=== PATIENT | male | born 1940 | race Caucasian/White ===

== ENCOUNTER 2019-01-07 20:23 | Inpatient (IN) | payer OTHER ==
[~2019-01-07] VITALS: Ht 182.9 cm; Wt 95.3 kg
[2019-01-07 20:28] VITALS: BP 157/71
[2019-01-07 22:10] LABS: ABSOLUTE NEUTROPHILS 5.9 thou/uL (1.4-8.2); BASOPHILS 0.8 % (0.0-2.0); EOSINOPHILS 1.4 % (0.0-3.0); HEMATOCRIT 44.7 % (42.0-52.0); LYMPHOCYTES 17.4 % (24.0-44.0); MCH 30.1 pg (26.0-34.0); MCHC 33.6 g/dL (28.0-37.0); MCV 89.6 fL (80.0-100.0); MONOCYTES 7.2 % (1.0-8.0); PLATELET COUNT 217 thou/uL (150-400); POLYS 73.2 % (36.0-66.0); RBC 4.99 mil/uL (4.50-6.00); RDW 14.4 % (10.5-14.5)
[2019-01-07 22:26] LABS: ALBUMIN 3.8 g/dL (3.4-5.0); BUN 17 mg/dL (7-18); CALCIUM 9.1 mg/dL (8.5-10.1); CO2 24 mmol/L (21-32); GLUCOSE 88 mg/dL (74-106); SGOT 13 U/L (15-37); SGPT 19 U/L (30-65); TOTAL BILIRUBIN 0.6 mg/dL (<0.1-1.0); TOTAL PROTEIN 7.3 g/dL (6.4-8.2); TROPONIN-I <0.06 ng/mL (<0.06)
[2019-01-07 23:02] LABS: ANION GAP 12 mmol/L (7-16); CHLORIDE 102 mmol/L (98-107); POTASSIUM 3.8 mmol/L (3.5-5.1); SODIUM 138 mmol/L (136-145)
[2019-01-07 23:12] LABS: URINE BILIRUBIN NEGATIVE (Negative); URINE BLOOD 1+ (Negative); URINE CLARITY CLEAR; URINE COLOR YELLOW; URINE GLUCOSE-RANDOM* NEGATIVE (Negative); URINE KETONES 1+ (Negative); URINE LEUKOCYTES-REFLEX NEGATIVE (Negative); URINE NITRITE-REFLEX NEGATIVE (Negative); URINE PROTEIN (DIPSTICK) NEGATIVE (Negative); URINE SPECIFIC GRAVITY <= 1.005 (1.005-1.035); URINE UROBILINOGEN 0.2 E.U./dl (0.2-1.0)
[2019-01-07 23:25] LABS: BACTERIA-REFLEX None Seen /HPF (None Seen); CASTS None Seen /LPF (None Seen); CRYSTALS None Seen /LPF (None Seen); MUCUS None Seen strn/LPF (None Seen); SQUAMOUS None Seen /LPF (0-3); URINE RBC 3-10 Few /HPF (0-2); URINE WBC-REFLEX None Seen /HPF (0-5)
[2019-01-07 23:31] LABS: AMP/METHAMP Negative (Negative); BARBITURATES Negative (Negative); BENZODIAZEPINES Negative (Negative); COCAINE Negative (Negative); METHADONE Negative (Negative); OPIATES Negative (Negative); PCP Negative (Negative)
[2019-01-08 00:42] VITALS: BP 132/86
[2019-01-08 00:50] VITALS: BP 158/84
--- NOTE | 2019-01-08 02:07 | NUR ---
PT ARRIVED ON UNIT AT 0030, ACCOMPANIED BY AND SON. HAD BEEN LIVING WITH , BUT SHE CAN NO LONGER CARE FOR HIM HIS ALZHEIMERS IS GETTING WORST. SHE CLAIMS SHE IN SOMETIMES AFRAID OF HIM. HE IS IN DENIAL TO THE EXTENT OF MEMORY PROBLEMS. ABLE TO PROVIDE CURSORY HISTORY AT THIS TIME. RECEIVED SEROQUEL IN ED AND IS A LITTLE DROWSY. VSS AND WAS COOPERATIVE WITH LIMITED INTERVIEW. HE WAS TAKEN TO A MEMORY FACILITY EARLIER TODAY, BUT REFUSED TO STAY, THUS HE WAS BROUGHT TO ED. MEDICAL HISTORY OF RENAL CARCINOMA WITH NEPHRECTOMY. ALERT BUT QUESTIONING TO WHY HE IS HERE.
[2019-01-08 02:21] VITALS: BP 158/84
--- NOTE | 2019-01-08 04:52 | NUR ---
PT SETTLED IN AFTER ADMISSION AND SLEPT WELL THROUGH THE NIGHT.
[2019-01-08 08:24] VITALS: BP 138/70
--- NOTE | 2019-01-08 09:10 | EKG ---
[place] [address] [address] [facility] [place] [address] ELECTROCARDIOGRAM REPORT Name: SAIMA BENNETT Room #: 527B- ADM IN M.R.#: [id number] ������������������ Admission: 01/07/19 ������������������ Attend Phys: Sebastian Deal DO Discharge: ������������������ Date of : 36 Report #: [id number] ����������������������������������������������������������������� [id number] THIS REPORT FOR: //name// [facility] ED Test Date: 2019-01-07 Test Time: 22:46:15 Pat Name: SAIMA BENNETT Department: Room: [facility] Gender: M [employer] Manager: PHUONG : 1940 Requested By: Ya Willis Order Number: [id number] MD: Joel Cano Measurements Intervals [place] Rate: 53 P: -10 PA: 200 QRS: -22 QRSD: 97 T: 11 QT: 438 QTc: 412 Interpretive Statements Sinus bradycardia Otherwise normal tracing No previous ECG available for comparison Electronically Signed On 01-08-2019 9:10:20 CDT by Joel Cano [email or web address] ��������������������������������������������� <ELECTRONICALLY SIGNED> ���������������������������������������� By: Joel Cano MD, [facility] ��������������������������������������������� 01/08/19 [id number] Joel Cano MD, FACC /EPI
--- NOTE | 2019-01-08 15:32 | NUR ---
PATIENT IS UP AND OUT ON THE UNIT MOST OF THE DAY. SHE IS FORGETFUL, AND HAS PERIODS OF CONFUSION. PATIENT STATES " MY TOOK ME TO A [facility] WHERE I MET WITH THIS OLD POLITICAINS. I WAS TALKING TO THIS KAREL I FOUND OUT THE TYPE OF FACILITY I WAS IN, I WAS NOT GOING TO STAY THERE. I JUST DON'T WANT TO TALK ABOUT IT" APPETITE IS POOR, " WHEN I REMEMBER WHAT MY DID, I LOST MY APPETITE". PATIENT ENCOURAGED TO COME TO STAFF WITH ANY CONCERN. PATIENT'S ADMISSION MEDICATION VERIFIED WITH DR. TOBAR THIS MORNING. HE TOOK ALL HIS MEDICATION WHOLE WITHOUT DIFFICULTY. HE DENIES SUICIDAL AND HOMOCIDAL IDEATION. HE AMBULATES WITH SLOW STEADY GAIT, NO AGITATION OR AGGRESSIVE BEHAVIOR NOTED AT THIS TIME. PATIENT DENIES AUDITORY/VISUAL HALLUCINATION, WILL MONITOR FOR SAFETY.
[2019-01-08 20:11] VITALS: BP 147/67
--- NOTE | 2019-01-08 23:23 | H ---
[facility] [place] [address] HISTORY AND PHYSICAL Name: SAIMA BENNETT Room #: 527B-B ADM IN M.R.#: [id number] Admission: 01/07/19 ������������������ Attend Phys: Sebastian Deal DO Discharge: ������������������ Date of : 36 Report #: [id number] THIS REPORT FOR: //name// CC: Sebastian Deal [facility] DATE OF SERVICE: 01/08/2019 INPATIENT PSYCHIATRIC EVALUATION DATE OF EVALUATION: 01/08/2019. ATTENDING PHYSICIAN: Sebastian Deal DO [employer]ER[employer]UT[employer] EXECUTIVE: Hospitalist Service, Lars Tom MD REASON FOR ADMISSION: Exit-seeking behavior, threatening behavior regarding called police at [facility]. SOURCES OF INFORMATION: Interview with the patient; discussion with , Kendra, over the phone; clinical records from Robert Hammond MD HISTORY OF PRESENT ILLNESS: This is an 78-year-old male with a history of roughly decade long Alzheimer's type of progression cognitive impairment. The patient was attempted to be placed midday yesterday to [facility] in [place], [place]. The patient resisted this, made a number of threats, police were called and the patient's and son were asked to take him to the hospital and seek Geriatric-Psychiatry evaluation and admission. From reports as well as talking with his for reasons unknown to this author, a transporter was arranged to pick the patient up and the patient was told he was being taken out to lunch. The did not accompany him to the nursing facility. The patient obviously is resentful of being placed in a nursing facility. He has limited insight and that he has cognitive impairment, he is amnestic and many other concerns. His house he does not share. His is certainly unwilling to have him return to live with her. The patient no longer drives. According to the , the patient was admitted at [facility] for an acute renal failure in June, spent a week in a usp facility after hospitalization and had no hospitalizations after that according to records from Dr. Willis. REVIEW OF SYSTEMS: On my evaluation; CONSTITUTIONAL: Denies fever or chills. EYES: Denies blurry vision. HENT: Denies runny nose, sore throat. CARDIOVASCULAR: Denies chest pain. RESPIRATORY: Denies shortness of breath. [facility] [address] [place] [address] HISTORY AND PHYSICAL Name: SAIMA BENNETT Room #: 527B-B ADM IN M.R.#: [id number] Admission: 01/07/19 ������������������ Attend Phys: Sebastian Deal DO Discharge: ������������������ Date of : 38 Report #: [id number] GASTROINTESTINAL: Denies abdominal pain. GENITOURINARY: Denies dysuria or hematuria. MUSCULOSKELETAL: Denies joint pain. SKIN: Denies rash. NEUROLOGIC: Denies weakness. PSYCHIATRY: Just reports he is unhappy with what happened yesterday. PAST MEDICAL HISTORY: Includes erectile dysfunction, history of nephrectomy, I believe it was on the right due to renal cell carcinoma, also histoplasmosis as a teen, calcified granulomas. 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 PAST SURGICAL HISTORY: Colonoscopy in 03/2013, right nephrectomy in 2003. HOME MEDICATIONS: Donepezil 10 mg daily, sertraline 50 mg daily and I believe there were a few more home meds. DIAGNOSTIC STUDIES: EKG was done and showed sinus rhythm, rate 53, LVH, no acute ST changes. LABORATORY ABNORMALITIES: Urine ketones 1+, urine blood 1+, urine RBC 3-10. CMP was within normal limits except AST low at 13, ALT low at 19. TSH was 2.020. Troponin is less than 0.06. CK was 84, alk phos 53. CBC: H and H 15.0 and 44.7, white count 11.0, platelet count 217. Urinalysis as described above. UDS was negative. Serum alcohol was less than 10. Chest x-ray showed mild increased basilar densities suggesting at least atelectasis and possible pneumonitis, so the patient is clinically asymptomatic. SOCIAL HISTORY: Alcohol; beer and wine 1-2 times per week. Denies smoking. Denies recreational drug use. Caffeine intake 3 cups a day. MEDICATIONS: Currently in the hospital; melatonin 5 mg p.o. at bedtime for sleep, famotidine 20 mg p.o. at bedtime for GERD, sertraline 50 mg daily for depression, donepezil 10 mg p.o. daily for depression, docusate sodium 100 mg b.i.d. for constipation, Depakote was started 250 b.i.d. at the nursing facility and we will increase it to [address] b[address]i.d. The patient is taking his ondansetron, magnesium hydroxide, acetaminophen, and loperamide p.r.n. PHYSICAL EXAMINATION: VITAL SIGNS: Today, temperature 36.4, pulse 63, respirations 18, BP 138/78, pulse ox around 96%. MUSCULOSKELETAL: Normal gait. MENTAL STATUS EXAM: This is a well-developed and well-nourished male appearing at least stated age. Attention impaired. [facility] mental status examination was performed and the patient scored a 14/30 under strict criteria. Concentration limited. Speech, normal rate, low volume. Thought [facility] [address] [place] [address] HISTORY AND PHYSICAL Name: SAIMA BENNETT Room #: 527B-B ADM IN M.R.#: [id number] Admission: 01/07/19 ������������������ Attend Phys: Sebastian Deal DO Discharge: ������������������ Date of : 38 Report #: [id number] process is linear, goal directed. Thought content, some poverty of thought, but concerned about why he was in the hospital. No psychomotor agitation. No psychomotor retardation. No auditory or visual type hallucinations. Denied suicidal intent or plan. Some hopelessness and some helplessness. Denied homicidal intent or plan. Memory noted to be impaired. He was 0/5 on the delayed recall. Insight limited. Judgment impaired. Fund of knowledge well below average. FORMULATION: An 78-year-old male sent to the ED at [facility] after failed admission at [facility]. DIAGNOSES: Major neurocognitive disorder, likely Alzheimer's disease with behavioral disturbance. Other comorbidities include history of renal cell carcinoma status post right nephrectomy and erectile dysfunction. Plan: Evaluate and stabilize. 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 history denied as far as I know. He has 1 son. Physical, sexual and emotional abuse, the patient denied, but this is entirely reliable. STRENGTHS: He is and insured, has supportive family. WEAKNESSES: Advancing age, neurodegenerative disorder. Time spent on interview, review of records, coordination of care of this patient approximately 60 minutes. ��������������������������������������������� <ELECTRONICALLY SIGNED> ���������������������������������������� By: Sebastian Deal DO ��������������������������������������������� 01/08/19 [id number] Sebastian Deal DO /nt
[2019-01-09 03:19] VITALS: BP 147/67
--- NOTE | 2019-01-09 03:57 | NUR ---
PT UP AND OUT OF ROOM PERIODICALLY EARLY THIS EVENING. DENIES NEGATIVE FEELINGS AT THIS TIME. RETURNED TO ROOM AND BED AND SLEPT. WOKE ABRUPTLY WHEN STAFF ENTERED TO ASSESS AND MEDICATE FOR THE NIGHT. DID NOT REMEMBER THIS STAFF EVEN THOUGH I ADMITTED HIM THE PREVIOUS NIGHT. TOOK MEDS AND RETURNED TO SLEEP. SLEPT WELL THROUGH THE NIGHT TO THIS POINT W/O INCIDENT.
[2019-01-09 12:08] VITALS: BP 130/82
--- NOTE | 2019-01-09 12:32 | NUR ---
PSYCHOSOCIAL ASSESSMENT Diagnosis: unspecified psychosis Admit Date: 01/07/19 Psychiatrist: EKATERINA Symptoms associated with current admission: Anxiety/panic Violence/aggression Activity level change Presenting problems: Pt was agitated and was tired of going sitting around the home. Pt became upset due to him being put in SNF. Precipitating Factors: Non-compliance psychothx Non-compliance medication Comments: History of High Risk Behavors: Other Suicide Risk Factors: D A-Signs of alcohol/substance abuse w/ suicide ideation B-Recent suicidal thoughts or attempts C-Recent thoughts or attempts of harming someone else D-Altered mental status due to psychiatric/chem dep etiology E-The behavior exists - add comment PSYCHIATRIC HISTORY Age of onset: 78 Prior hospitalizations: Denies hx hospitalization Hospital names and dates, if available: Most Recent Outpatient HX: Additional information: Legal Status: Voluntary Guardian/Conservatorship type: DPOA Contact name: Pratibha Larson Contact phone: [phone] Other: Name: Phone: Other legal issues: (Arrests/convictions Current Status) P.O. Name and Phone #: FAMILY HISTORY Place of : [facility] Raised in: [facility] # Siblings & order: Oldest child of 4 Describe relationships within family of origin: Pt does speak with his sibilings on the phone. Pt stated that one of his brother is . Pt has not seen his sibilings in awhile. Any psychiatric or substance abuse problems within family of origin: Y Has patient been sexually or physically abused, neglected or been taken advantage of financially? N Has the abuse been reported? N Other pertinent family information: Marital history/significant relationships: Domestic violence: N Children ages & who is caring for them: Pt has one adult son. Is child welfare involved? N Drug history: None Alcohol Use: Past use Frequency: Special Occasions Quantity: 2 DRINKS Have you ever felt you ought to Cut down on drinking? Have people Annoyed you by criticizing your drinking? Have you ever felt bad or Guilty about your drinking? Have you ever had a drink first thing in the morning to steady your nerves/get rid of a hangover(Eye account maintenance representative) CAGE TOTAL 0 If CAGE score is 3 or more, notify provider for withdrawal orders! AXIS SCREENING TOOL Johnson I Mood Disorders: Depression Johnson II Personality/Mental Retardation: Johnson III Medical Impairment: Alzheimer's UTI Johnson IV Problem(s) with: Health care services Primary support group Johnson V: 50-Serious w/impairment Additional Johnson comments: PERSONAL BACKGROUND Relevant cultural issues (ethnicity, values, beliefs, spiritual): Spiritual Episcopalian: Gnosticism Importance of advent to patient: Medium What hobbies/interests does the patient have? Gun collection Riding Motorcycle Sexual orientation (relevant impact to current treatment): Heterosexual : Where did you serve: Branch of service: [employer] Rank: Discharge status: Honorable Are you a combat ? N Occupational/Work: Do you work? N Do you want to work? N How many hours do you work/week? 0 How many jobs have you had in the past 5 years? 1 Do you need assistance finding a job? N Does the patient need assistance in job training? N Source of income: SSI Does patient have a Payee? Y Payee name: Pratibha Larson Approximate monthly income: 1999 Does patient have adequate funds for next 30 days? Y Education background: High school diploma Highest grade completed: 12th grade Other Educational/training programs: Functional deficits: Explain functional deficits: Current living situation: Facility (B&C, SNF,ILF) Address/phone where pt. is living: [place], [place] Does the patient plan to continue there after DC? Yes Patient lives with: Another facility Will family/significant other be involved in treatment? Other community support services utilized: Pt will be return to the facility. Support System Available (family/friend) Name: Pratibha Larson Relationship: Name: Casandra Larson Relationship: Son Name: Phone: Relationship: Patient strengths: Family support Insight Patient's assets: Good self care Positive support system Patient's weaknesses: Chronic hx mental illness Poor social skills Impulsive Additional weaknesses: Patient's perception of current social media marketing analyst/case management needs: Pt stated that a SS is someone that assist with care, and discharge. PRELIMINARY DISCHARGE PLAN Discharge plan/Community resource contacts: Pt will be discharging to [facility] Discharge needs: Pt will need to be transported back to the facility. Problems anticipated on discharge: Compliance w/ med regimen Living arrangements Comments: (factors affecting DC plan/pt. response/interventions) Pt need to be asssed on his medication, and assistance with understanding his diagnosis. Pt will need to be in a memory care unit that he will recieve the care for his wellbeing.
--- NOTE | 2019-01-09 18:27 | NUR ---
7a-7p: Ambulates in halls and to DR for meals, appetite good, feeds self, takes meds whole without problems. Paces halls, disagrees with rules, secured unit and Drs. decision to retain him in unit. Patient has increasing anger and hositility when re-directed or denied outside access. Clergy here for visit today, Dr. Deal here, assessment of pt completed. Noises/yelling of other pts on unit appear to increase pts need to elope or isolate himself in room or at end of dimas by window.
[2019-01-09 20:19] VITALS: BP 144/75
--- NOTE | 2019-01-10 04:31 | NUR ---
ASSUMED CARE AT START OF SHIFT PT UP WALKING AROUND IN HALLWAY CALM COOPERATIVE APPEARS ALERT ORIENTED X4.PT STATED THAT HE DID NOT KNOW WHY WOULD COMMIT HIM TO HOSPTIAL WHEN HE THOUGHOUT THE MARRIAGE WAS FINE . PT STATES REFUSES TO TALK TO HIM, PT APPEARS CONFUSED ABOUT THE CIRCUMSTANCES ON WHY HE IS A PATIENT. DISCUSS CURRENT PLAN OF CARE AND MEDICATION , PT VERBALIZED UNDERSTANDING AND AGREEABLE. PT REMAIN CALM AMD COOPERATIVE THROUGHOUT THE SLEEVE SEWER, WILL REPORT CHANGES.
[2019-01-10 09:52] VITALS: BP 131/68
[2019-01-10 14:46] VITALS: BP 131/68
--- NOTE | 2019-01-10 17:44 | NUR ---
7a-7p: Ambulates in halls, gait steady, denies pain or discomfort. Takes meds without problems, compliant with therapy attendence and participation, interacts appropriately with other patients. Dr. Deal here to see patient. Patient inquires about leaving, shows sadness and speaks of who he misses and states he "doesn't understand why she did him this way." Pleasant and cooperative with staff, ate all meals in DR, appetite good, feeds self, no problems noted. Will continue to monitor.
[2019-01-10 19:58] VITALS: BP 129/67
--- NOTE | 2019-01-10 22:37 | NUR ---
PATIENT IS ALERT X 2. REMAINS CONFUSED AT TIMES. TAKEN HIS MEDICATION WITH OUT PROBLEMS. UP AD CJ WITH STEADY GAIT. VOIDS PER TOLIET. NO BEHAVIORS NOTED SO FAR THIS SHIFT. REMAINS PARANOID AT TIMES. ON ROOM AIR. CONT PLAN OF CARE. HAS 1+EDEMA NOTED TO HIS ANKLES. WILL MONITOR FOR CHANGES.
--- NOTE | 2019-01-11 04:19 | NUR ---
PATIENT SLEEPING. DENIES ANY NEEDS. NO BEHAVIORS NOTED. WAS STILL CONFUSED SOME PRIOR TO BED. CONT PLAN OF CARE.
[2019-01-11 07:25] VITALS: BP 153/78
--- NOTE | 2019-01-11 09:27 | NUR ---
PATIENT WAS APPROACHED THIS MORNING ABOUT HIS BELONGINGS BEING STORED IN LOCKER SYSTEM. WAS IRRIATED AND DEBATED STAFF AND VERBALIZED HIS DISAPPROVAL. PATIENT GUARDED AND EASILY AGITATED. WANTS TO GO HOME. FEELS HERE LONG ENOUGH. QUESTIONED ON WHY HE WAS ADMITTED AND APPEARED TO EXCEPT EXPLANATION. MORNING PROGRESSED STAFF WAS ABLE TO ENCOURAGE PATIENT TO EXPRESS THOUGHTS AND BECAME MORE AGREEABLE. FOCUSED ON HIS SERVICE AND VERY ADAMANT AND PASSIONATE WITH HIS SERVICE AND THE LOSS OF ALOT OF HIS BUDDIES. APPEARS TO GET VERY EMOTIONAL WHEN DISCUSSING IT AND BECAME TEARFUL DURING GROUP. PATIENT DETACHED AND ISOLATES FROM GROUP. DOES WELL WHEN ON ONE ON ONE AND STAFF ENCOURAGES TALKING. DENIES ANY S/I BUT ADMITS TO ANXIETY ABOUT BEING HERE. CLAIMS NOT DEPRESSED WHEN QEUSTIONED. GOOD APPETITE - MEDICATION COMPLIANT - CLUELESS ON WHAT BROUGHT HIM HERE AND THIS APPEARS TO FRUSTRATE HIM EVEN MORE. ATTENDED MORNING GROUP - LISTENED TO DISCUSSION - LITTLE PARTICIPATION NOTED. OBSERVED PATIENT AND HE APPEARED VERY PENSIVE WHILE OTHER DISCUSSED THEIR GOALS. VERY INDEPENDENT - DRESSED SELF - MADE HIS BED AND PREFERS TO DO EVERYTHING HIMSELF. CAN BECOME RESISTIVE WHEN ATTEMPTS MADE TO AID HIM WITH ADL'S.
[2019-01-11 19:36] VITALS: BP 152/77
[2019-01-11 22:40] VITALS: BP 152/77
[2019-01-11 22:46] VITALS: BP 152/77
--- NOTE | 2019-01-12 02:47 | NUR ---
PT QUIET EARLY IN SHIFT. OUT AMD INTERACTING WITH FEMALE PEERS. SPOKE BRIEFLY WITH ON THE PHONE. WENT TO BED AFTER SNACK TIME. AWAKENED TO TAKE HS MEDS. REFUSED. " I DON'T NEED THEM, I'VE HAD ENOUGH OF THAT THEY DON'T HELP ME." ENCOURAGED BUT VEHEMENTLY REFUSED. IRRITABLE AND SURLY. SLEPT WELL TO THIS POINT.
[2019-01-12 12:00] VITALS: BP 139/69
--- NOTE | 2019-01-12 15:17 | NUR ---
ASSUMED CARE AT 0715. PT. ASKING MULTIPLE QUESTIONS ABOUT WHY HE IS HERE, IF HIS IS BEHIND HIS BEING HERE, AND IF HIS FRIENDS ARE ALSO BEHIND HIS BEING HERE. PT. UNABLE TO RETAIN INFORMATION GIVEN TO HIM. UP FOR BREAKFAST AND LUNCH. RESTING IN BED AFTER BREAKFAST. WENT TO AFTERNOON GROUP. DENIES SI/HI, AV/VH. REFUSED TO SHOWER, BUT BEDDING WAS CHANGED.
[2019-01-12 20:30] VITALS: BP 126/86
--- NOTE | 2019-01-13 02:10 | NUR ---
UPON INITIAL EVALUATION IS NOTED TO BE ATTEMPTING TO ASSIST STAFF /SECURITY OFFICERS RESTRAINING A COMBATIVE PEER I DAYROOM-BECOMES VERBALLY AGITATED WITH ATTEMPTS TO REDIRECT AWAY FROM SITUATION AND DID LEAVE BRIEFLY BEFORE COMING BACK TO AREA ATTEMPTING TO ASSIST A PEER WITH AMBULATION-AGAIN WHEN STAFF REDIRECTS AND ASKS HIM TO GO TO ROOM COMPLIED BRIEFLY BEFORE RETURNING TO DAYROOM AND ATTEMPTING TO ASSIST A FEMALE PEER BY CARRYING HER BELONGINGS BUT FOLLOWS HER INTO ROOM DESPITE STAFF ATTEMPTS TO REDIRECT-COMPLIENT WITH TAKING HS MEDICATIONS AND SNACK-GAIT APPEARS STEADY WITHOUT ASSSISTVE DEVICES
[2019-01-13 07:15] VITALS: BP 153/77
--- NOTE | 2019-01-13 10:48 | NUR ---
ASSUMED CARE OF PT @ 0700. PT UP AMBULATING IN HALLWAY WITH STEADY GAIT, PACING INTERMITTENTLY IN HALLWAYS THROUGHOUT SHIFT. PT GUARDED, QUIET, WITHDRAWN. AFFECT FLAT. MINIMAL SPONTANEOUS INTERACTION W/STAFF AND OTHERS. ATE BREAKFAST IN DINING ROOM AND ATTENDED AM GROUP W/RT THIS AM. COMPLAINT W/MEDICATIONS. NO COMPLAINTS OR PAIN VOICED. COMPLETED AM CARE ON OWN. IRRITABLE MOOD AT TIMES. CONTINUE TO MONITOR THROUGHOUT SHIFT.
--- NOTE | 2019-01-13 12:36 | NUR ---
Date of Admission: 01/07/19 Date of Activity Therapy Assessment:01/11/19 Activity Goal:To exhibit knowledge of two anger management coping skills before discharge. Initial Goal: To attend 1 group per day. Weekly progress towards goal:Did not meet Group participation level:Minimal Behaviors observed:Pt will attend groups if prompted and motivated. Pt has been seen wandering the halls on a frequent basis. Pt has been focused on shaving and discharge. Pt struggles to remember why he is here. Pt becomes frustrated when he can't remember this. Plan: To attend 2 groups per day.
--- NOTE | 2019-01-13 15:02 | NUR ---
PT ATTENDED AFTERNOON GROUP W/PEERS AND CONTINUITY MANAGER. UP IN DAYROOM OR PACING HALLWAYS. AFFECT FLAT, NO AGGRESSIVE BEHAVIOR. COOPERATIVE, BUT WITHDRAWN AND GUARDED. CONTINUE TO MONITOR THROUGHOUT SHIFT.
--- NOTE | 2019-01-13 15:32 | NUR ---
PT PLAYED CARDS WITH STAFF AND PEER AND LAUGHED AND JOKED W/PEER DURING INTERACTION. CONTINUE TO MONITOR THROUGHOUT SHIFT.
--- NOTE | 2019-01-13 17:35 | NUR ---
ATE DINNER IN DINING ROOM AT TABLE W/PEER. PLAYED CONNECT 4 EARLIER W/PEER AND INTERACTED APPROPRIATELY, SMILIING. UP AMBULATING INDEPENDENTLY IN HALLWAY. NO AGGRESSIVE BEHAVIOR NOTED. CONTINUE MONITORING THROUGHOUT REMAINDER OF SHIFT.
[2019-01-13 19:34] VITALS: BP 134/71
--- NOTE | 2019-01-14 02:51 | NUR ---
VISIBLE IN DAYROOM SINCE START OF SHIFT SITTING WITH PEERS-BLUNTED AFFECT WITH MINIMAL SPONTANEOUS VERBAL RESPONSES. GUARDED WHEN APPROACHED BY STAFF-ANSWERS QUESTIONS FOR PM ASSESSMENT WITH 1-2 WORD VAGUE RESPONSES IE "FINE" "GOOD" ETC. DID MENTION DURING PM WRAP UP GROUP HOW MUCH HE ENJOYED PLAYING CARDS AND GAMES WITH PEERS THIS AFTERNOON AND IDENTIFIES THIS BEST PART OF DAY- EXPRESSES FRUSTRATION WITH UNIT RULES-SPECIFICALLY NOT BEING ALLOWED TO HAVE HIS RAZOR IN ROOM AND NOT BEING ABLE TO "GET ANY FRESH AIR"-DYSPHORIC MOOD-DENIES C/O PAIN OR DISCOMFORT-AND IDENTIFIES HIS MAIN CONCERN "WHEN I GET TO GO HOME" SHOWS LIMITED INSIGHT OR AWARENESS INTO EVENTS PRECIPITATING ADMISSION. GAIT STEADY WITHOUT ASSISTIVE DEVICES. COMPLIENT WITH HS MEDICATIONS HOWEVER IS COMPLAINTIVE RE NUMBER OF PILLS PRESCRIBED STATING "THERE IS MORE EVERYDAY-IM NOT SURE I NEED THEM" ( ACTUAL NUMBER OF PILLS WAS SAME LAST PM. ) APPEARS WELL GROOMED HOWEVER IS NOTED TO BE WEARING SAME CLOTHES LAST PM AND STRONG ODOR NOTED WHEN SHOES AND SOCKS REMOVED AT BEDTIME-OFFERED SHOWER OR ASSIST WITH PM CARES-REFUSED STATING "ILL DO THAT TOMORROW"
[2019-01-14 07:18] VITALS: BP 136/75
[2019-01-14 12:21] VITALS: BP 136/75
--- NOTE | 2019-01-14 15:49 | NUR ---
ASSUMED CARE AT 0715 THIS MORNING. PT. CONTINUES TO BE CONFUSED, ASKING QUESTIONS REPEATIVELY, UNABLE TO REMEMBER ANSWERS. SHAVED AND CLEANED UP THIS MORNING, BUT REFUSED SHOWER. COMPLIANT WITH MEDICATIONS. CAME ON TO THE UNIT FOR MEALS AND GROUPS. DENIES BRITTANY, HI/SI. ASKING FOR HIS BELT ON MANY OCCASIONS. STAFF TRIED TO EXPLAIN TO PT. WHY HE COULD NOT HAVE THE BELT, BUT HE STATED HE COULD NOT UNDERSTAND WHY, EVEN AFTER EXPLAINATION.
[2019-01-14 20:07] VITALS: BP 139/73
--- NOTE | 2019-01-15 03:45 | NUR ---
PT REMAINS CONFUSED AND QUESTIONING TO WHY HE IS HERE. CALLED THIS PM, AND CLAIMED SHE HUNG UP ON HIM. CALL WAS NOT MONITORED BY STAFF, SO ACCURACY OF HIS CLAIM IS UNKNOWN. RESTLESS EARLY IN THE SHIFT, BUT SETTLED AFTER TAKING HS MEDS. RESTLESS THROUGH THE NIGHT, AND SLEPT OFF AND ON. REMAINED IN HIS ROOM THROUGH THE NIGHT.
--- NOTE | 2019-01-15 13:02 | NUR ---
PATIENT UP FOR BREAKFAST, ATE 100% FLAT, BLUNTED AFFECT. IN AND OUT OF ROOM UNTIL LUNCH, ALSO ATE 100% OF LUNCH. COMPLIANT WITH ALL MEDICATIONS. NO BEHAVIORS OBSERVED TO DATE THIS SHIFT. CONTINUE TO MONITOR.
[2019-01-15 19:52] VITALS: BP 140/88
--- NOTE | 2019-01-15 22:59 | NUR ---
ASSUMED CARE OF 19:15. UP IN DAY ROOM AND IN OWN ROOM, AMBULATING FROM ONE LOCATION TO THE OTHER AD CJ. REPORTS THAT SPOKE TO HIS TODAY, BUT ONLY BRIEFLY AND IS UPSET THAT SHE DID NOT WANT TO TALK LONGER. DENIES PAIN. EXPLAINS THE HOUSEHOLD AND YARD CHORES THAT HE DOES WITHOUT ASSISTANCE. ASKS WHEN HE CAN GO HOME, DOES NOT WANT TO RETURN TO FACILITY.
[2019-01-16 01:05] VITALS: BP 140/88
--- NOTE | 2019-01-16 06:09 | NUR ---
SLEPT SOUNDLY THROUGHOUT THE NOC. SLEPT 9 HOURS.
--- NOTE | 2019-01-16 10:56 | NUR ---
Nutrition: pt admit to [facility] with unspecified psychosis. Seen for LOS. Pt eating well, 100% of meals documented on regular diet. No weight hx available. Current BMI 28.5. Hx dementia. Noted planned discharge tomorrow. Low risk.
[2019-01-16 13:12] VITALS: BP 140/88
--- NOTE | 2019-01-16 15:53 | NUR ---
ASSUMED CARE AT 0715 THIS MORNING. PT. NEATLY DRESSED AND GROOMED TODAY. PT. NOT ASKING CONTINUAL QUESTIONS HE DID BEFORE. NO STRIKING OUT AT STAFF, DENIES SI/BRITTANY WARREN. HAS BEEN ON THE UNIT FOR MEALS AND GROUPS. COMPLIANT WITH HIS MEDICATIONS. [facility] CALLED TODAY WANT INFORMATION FAXED TO THEM. THIS WAS COMPLETED REQUESTED.
--- NOTE | 2019-01-16 20:09 | NUR ---
ASSUMED CARE @ 19:15. IN DAY ROOM AND HALLS AMBULATING AD CJ WITH A STEADY GAIT. ASSISTED TO CALL , GOT THE ANSW MACHINE AND LEFT MSG FOR HER. REPORTS POSITIVE HAPPY DAY. DENIES SI, HI, DEPRESSION. STILL WRAPPING HIS HEAD AROUND GOING TO A CARE FACILITY WHEN HE LEAVES HERE.
[2019-01-17 02:28] VITALS: BP 140/88
[2019-01-17] MEDS ORDERED: ACETAMINOPHEN325 M1 PO (09:16)
[2019-01-17] MEDS ORDERED: DIVALPROEX SOD250 M3 PO (09:17)
[2019-01-17] MEDS ORDERED: DEPAKOTE125 MG PO (09:17)
[2019-01-17] MEDS ORDERED: NAMENDA 5 MG TAB5 M1 PO ×4 (09:18→09:20)
[2019-01-17] MEDS ORDERED: ZYPREXA 5 MG TAB5 M1 PO ×2 (09:18)
[2019-01-17] MEDS ORDERED: COLACE 100 MG100 MG PO (09:20)
[2019-01-17] MEDS ORDERED: PEPCID20 MG PO (09:22)
[2019-01-17] MEDS ORDERED: MELATONIN5 M1 PO (09:22)
--- NOTE | 2019-01-17 11:57 | NUR ---
Patient Name: SAIMA BENNETT Admission Date: 01/07/19 DISCHARGE PLAN: Pt will be discharge to [facility]. Care Assessment: Pt was assessed by Dr. Deal and was diagnosed with Major Neurocognitive Disorder, Pt will need a memory care unit. Level II Assessment: None Transportation: Pt will be transported through the nursing facility. Special Instructions/Notes: DISCHARGE TO FACILITY: Memory Care Unit Facility: [facility] Fax: Address: [address] [place] [address] Contact Name: Peyton PCP: Psychiatrist:
--- NOTE | 2019-01-17 12:13 | NUR ---
ASSUMED CARE AT 0715 THIS MORNING. PT. TO BE DISCHARGED AT 1100 TODAY. PT. BELONGINGS GATHERED, DISCUSSED DISCHARGE WITH PATIENT. PT. FILLED OUT SURVEY. HIS DISCHARGE PAPERS WERE PLACED IN A PACKET. REPORT CALLED TO THE HOME WHERE PT. IS TO GO. ALL HIS BELONGINGS, DISCHARGE PACKET ALONG WITH SCRIPTS, SENT WITH PT. PT. LEFT WITH TRANSPORTATION FROM [facility]. LEFT IN W/C ACCOMPANIED BY [facility], AND [facility]OSP[facility] TRANSP[facility].
--- NOTE | 2019-01-18 08:53 | D ---
[facility] [place] [address] DISCHARGE SUMMARY Name: SAIMA BENNETT Room #: 527B-B DIS IN M.R.#: [id number] Admission: 01/07/19 ������������������ Attend Phys: Sebastian Deal DO Discharge: 01/17/19 ������������������ Date of : 36 Report #: [id number] THIS REPORT FOR: //name// CC: Sebastian Deal [facility] DATE OF SERVICE: 01/17/2019 INPATIENT PSYCHIATRIC DISCHARGE SUMMARY ATTENDING: Sebastian Deal DO. FILBERT GROWER AT THE TIME OF DISCHARGE: Lay Yee MD. DISCHARGE DIAGNOSES: As follows: Major neurocognitive disorder, probable due to Alzheimer disease with behavioral disturbance, improved. Medical comorbidities include gastroesophageal reflux disease, history of renal cancer status post nephrectomy. DISCHARGE MEDICATIONS: As follows: Acetaminophen 650 mg p.o. q. 6 p.r.n. for pain, Depakote 750 mg p.o. b.i.d. that is enteric coated 125 mg p.o. at bedtime, olanzapine 5 mg p.o. b.i.d. every 12 hours, olanzapine 5 mg p.o. q.6 hours p.r.n. for severe agitation. He is currently on memantine titrations for the next 7 days, should be 5 mg p.o. b.i.d., then 5 mg in the morning and 10 mg in the evening, then 10 mg twice a day after that; Colace 100 mg p.o. b.i.d. for bowel motility; famotidine 20 mg p.o. for GERD; melatonin 5 mg p.o. at bedtime p.r.n. for insomnia. LABORATORY DATA: This admission is as follows: CBC: H and H from 01/07 was 15.0 and 44.7, white count of 8, platelet count 217. Chemistries from admission were sodium 138, potassium 3.8, chloride 102, bicarbonate 24, BUN 13, creatinine 1.0, estimated GFR 72, glucose 88, calcium 9.1. Total bilirubin 0.6, AST 13, ALT 19, alkaline phosphatase 53. CK 84. Troponin less than 0.06. Total protein 7.3, albumin 3.8. TSH 2.020. IMAGING: This admission, head CT done in the ER showed atrophic changes, no acute process. Chest x-ray this admission showed mild chronic lung changes, mild increase basilar density suggesting atelectasis. DISCHARGE PLAN: I will discharge to the [facility], where he will receive memory care. Psychiatric and medical care to be provided at that facility. REASON FOR ADMISSION: On the day of admission, 01/07, an attempt of placement was made to [facility], but the patient was agitated, his had had him taken there rather by a milk truck driver. No family there was to help him settle in. [facility] [address] [place] [address] DISCHARGE SUMMARY Name: SAIMA BENNETT Room #: 527B-B DIS IN M.R.#: [id number] Admission: 01/07/19 ������������������ Attend Phys: Sebastian Deal DO Discharge: 01/17/19 ������������������ Date of : 36 Report #: [id number] So, after several threatening behaviors, his son and took him to the Emergency Room. HOSPITAL COURSE: The patient was admitted to Geriatric Psychiatry Unit. The patient had poor insight into the nature of his dementia. His SLUMS score was around 12-13/30. Depakote was started and titrated to its final dose of 750 in the morning and 875 at night. He did have a slightly high blood level; therefore, it was reduced by 125 mg, blood level was 103. PHYSICAL EXAMINATION: VITAL SIGNS: Today at discharge is as follows: Temperature 36.2, pulse rate 95, respirations 18, BP 140/88, O2 sat 96%. MUSCULOSKELETAL: Normal gait and station. MENTAL STATUS EXAMINATION: This is a well-developed male, appearing stated age. Attention limited. Concentration limited. Speech normal rate. Thought process is linear and goal directed. Focused on how longer he had been in dementia. No significant agitation or significant retardation. Denied auditory or visual hallucinations. No suicide intent or plan. Some helplessness, hopelessness. Denied homicidal intent or plan. Memory noted to be impaired. Insight and judgment limited. Fund of knowledge below average. Prognosis for this patient is guarded due to advanced age and dementia. ��������������������������������������������� <ELECTRONICALLY SIGNED> ���������������������������������������� By: Sebastian Deal DO ��������������������������������������������� 01/18/19 [id number] Sebastian Deal DO /nt
== END 2019-01-17 11:30 | DRG 57 ==
LOC: ER 20:23 → SBH 23:48 → EROBS 23:48 → SBH 01-08 00:34
PROVIDERS: Student in an Organized Health Care Education/Training Program; ADMIT Psychiatry & Neurology Psychiatry
DX: G30.9 Alzheimer's disease, unspecified (principal); F23 Brief psychotic disorder; J98.11 Atelectasis; F01.51 Vascular dementia, unspecified severity, with behavioral disturbance; F32.9 Major depressive disorder, single episode, unspecified; Z28.21 Immunization not carried out because of patient refusal; Z90.5 Acquired absence of kidney; Z79.899 Other long term (current) drug therapy
CPT/HCPCS: 10880